=== PATIENT | male | born 1975 | race Hispanic/Latino ===

== ENCOUNTER 2017-06-18 16:19 | Emergency (ER) | payer OTHER ==
[~2017-06-18] VITALS: Ht 162.6 cm; Wt 77.3 kg
[2017-06-18] MEDS ORDERED: CELE50CA PO (16:24)
[2017-06-18] MEDS ORDERED: CYCL10TA PO (16:24)
[2017-06-18 19:14] VITALS: BP 113/72
== END 2017-06-18 19:18 | disposition home or self-care (01) ==
LOC: M ED 16:19
DX: N39.44 Nocturnal enuresis (principal); G89.29 Other chronic pain; M54.5 Low back pain; M50.30 Other cervical disc degeneration, unspecified cervical region; Z79.899 Other long term (current) drug therapy

== ENCOUNTER → 2017-11-04 | Outpatient (CLI) | payer OTHER | LOC: M RAD 11:04 | DX: R91.8 Other nonspecific abnormal finding of lung field (principal) | CPT/HCPCS: 71250 ==